=== PATIENT | female | born 1965 | race Caucasian/White ===

== ENCOUNTER → 2016-06-21 | Outpatient (CLI) | payer OTHER ==
[2016-06-21 15:25] LABS: Basophils % (A) 1 %; CH 30.1; CHCM 33.8; Eosinophils # (A) 0.3 k/uL (0-0.7); Eosinophils % (A) 4 %; HCT 44.4 % (34.0-46.0); HDW 2.55; HGB 14.5 gm/dL (11.4-16.0); Luc % (Auto) 1; Lymphocytes # (A) 2.1 k/uL (1.0-4.8); Lymphocytes % (A) 27 %; MCH 29.2 pg (25.0-35.0); MCHC 32.6 g/dL (31.0-37.0); MCV 89.4 fL (80.0-100.0); Mean Platelet Volume 7.3; Monocytes # (A) 0.5 k/uL (0-1.0); Monocytes % (A) 6 %; Neutrophils # (A) 4.9 k/uL (1.3-7.7); Neutrophils % (A) 62 %; RBC 4.96 m/uL (3.80-5.40); RDW 12.3 % (11.5-15.5); WBC 7.9 k/uL (3.8-10.6); WBC (Perox) 7.81
== END | disposition home or self-care (01) ==
LOC: LABPAT 14:46
PROVIDERS: ATTEND Obstetrics & Gynecology
DX: Z01.812 Encounter for preprocedural laboratory examination (principal); Z01.810 Encounter for preprocedural cardiovascular examination
CPT/HCPCS: 85025

== ENCOUNTER 2016-06-27 06:29 | Day surgery (SDC) | payer OTHER ==
[2016-06-22 12:29] VITALS: BMI 43.0
--- NOTE | 2016-06-26 17:20 | P.HPOB ---
History of Present Illness H&P Date: 06/27/16 Chief Complaint: Thickened endometrium Keena is a 51-year-old female who had an ultrasound for follow-up of ovarian cyst. On ultrasound it was noted that the endometrial lining was twice as thick as would be expected and that she has very heavy vaginal bleeding November 02 for dates for menses. She is scheduled for D&C hysteroscopy to rule out polyp or other pathology. All questions are answered for her prior to proceeding to the operating room and risks/benefits/alternatives were discussed with the patient in detail as well as answered all questions. Past Medical History Past Medical History: Hypertension, Skin Disorder Additional Past Medical History / Comment(s): elevated urine calcium ,migraines , varicose veins, gall stones, kidney stones, anemia, POLYP, HEMMOROIDS History of Any Multi-Drug Resistant Organisms: None Reported Past Surgical History: Section, Orthopedic Surgery Additional Past Surgical History / Comment(s): jj hand surgery,rt nephrolithotomy, COLONOSCOPY, lithotripsy Past Anesthesia/Blood Transfusion Reactions: Motion Sickness, Postoperative Nausea & Vomiting (PONV) Additional Past Anesthesia/Blood Transfusion Reaction / Comment(s): pt states "had a difficult time with intubation with kidney surgery-no letter" Past Psychological History: No Psychological Hx Reported Smoking Status: Never smoker Past Alcohol Use History: Occasional Past Drug Use History: None Reported - Past Family History Mother Family Medical History: Renal Disease Additional Family Medical History / Comment(s): R/T KIDNEY FAILURE Father Family Medical History: Deep Vein Thrombosis (DVT), Renal Disease Additional Family Medical History / Comment(s): R/T KIDNEY FAILURE Medications and Allergies Home Medications Medication Instructions Recorded Confirmed Type Ferrous Sulfate [Feosol] 325 mg PO DAILY 09/14/14 02/21/16 History Cholecalciferol [Vitamin D3] 2,000 unit PO DAILY 10/07/15 02/21/16 History Losartan/Hydrochlorothiazide 1 each PO DAILY 10/07/15 02/21/16 History [Losartan-Hctz 100-25 mg Tab] Metoprolol Tartrate [Lopressor] 50 mg PO QAM 10/07/15 02/21/16 History Potassium Chloride [K-Tab ER] 10 meq PO DAILY 10/07/15 02/21/16 History hydrALAZINE HCL 50 mg PO BID 10/07/15 02/21/16 History Tamsulosin HCl [Flomax] 0.4 mg PO DAILY 02/17/16 02/21/16 History Allergies Allergy/AdvReac Type Severity Reaction Status Date / Time lisinopril AdvReac Cough Verified 06/22/16 12:18 Exam Osteopathic Statement: *. No significant issues noted on an osteopathic structural exam other than those noted in the History and Physical/Consult. - OBG Physical Exam Breast: both: normal (no masses) Abdomen: bowel sounds normal, no diffuse tenderness, no bruit present, no guarding noted, no hepatomegaly, no splenomegaly, no mass Vulva: both: normal Vagina: normal moisture, no discharge Cervix: no lesion, no discharge Uterus: normal size, normal contour Adnexa: both: normal Anus/Rectum: normal perianal skin, no rectal mass, no hemorrhoids, heme negative
[~2016-06-27 06:29] MED LIST: DEXAMETHASONE SOD PHOSPHATE 10 MG/ML 1 ML VIAL IV ONE; HYDROmorphone 1 MG/ML 1 ML SYRINGE IVP PRN; LACTATED RINGERS 1,000 ML IV SCH; MIDAZOLAM 2 MG/2 ML VIAL IV PRN; ONDANSETRON 4 MG/2 ML VIAL IVP ONE; Pre Op ABX Message 1 EACH MISC MISCELLANE ONE; SCOPOLAMINE 1.5MG/72HR PATCH TRANSDERM ONE
[2016-06-27] MEDS ORDERED: LIDOCAINE 1% 20 ML VIAL (10MG/ML) FOR IV START INTRADERMA ONE (07:04)
[2016-06-27] MEDS ORDERED: MIDAZOLAM 2 MG/2 ML VIAL ONE (07:34)
[2016-06-27] MEDS ORDERED: fentaNYL (PF) 50 MCG/ML 2 ML AMP ONE (07:34)
[2016-06-27] MEDS ORDERED: PROPOFOL 10 MG/ML 20 ML VIAL IV ONE (07:34)
[2016-06-27] MEDS ORDERED: LIDOCAINE 1% INJ 10MG/ML (20 ML MDV) ONE (07:34)
[2016-06-27] MEDS ORDERED: SUCCINYLCHOLINE CHLORIDE 100 MG/5 ML SYR IV ONE (07:34)
[2016-06-27] MEDS ORDERED: KETOROLAC 30 MG/ML 1 ML VIAL ONE (07:34)
--- NOTE | 2016-06-27 07:55 | P.OP ---
Date of Procedure: 06/27/16 Preoperative Diagnosis: DUB Postoperative Diagnosis: same Procedure(s) Performed: d&c hysteroscopy Anesthesia: TRAVIS Surgeon: Earl Daniels Estimated Blood Loss (ml): 5 Pathology: other (uterine currettings) Condition: stable Disposition: same day Operative Findings: await tissue pathology Description of Procedure: Was taken the operating suite where a general anesthetic was found be adequate. She was prepped and draped in normal sterile fashion and placed in dorsal lithotomy position. Initially a weighted speculum was inserted in the vagina and anterior lip of the cervix was then identified and grasped with a single- tooth tenaculum. Cervix was then dilated uterus sounds 10 cm. Camera was then inserted proliferative endometrium was noted therefore camera was removed and sharp curettings of endometrium were obtained. All this tissues collected placed on Telfa sent to pathology for evaluation. Once this was accomplished all instruments were removed sponge, lap, needle counts were all correct 2 and patient was taken to the recovery room in stable and satisfactory condition. Plan - Discharge Summary New Discharge Prescriptions: Ibuprofen [Motrin] 600 mg PO Q6HR PRN #30 tab PRN Reason: Pain Discharge Medication List Ferrous Sulfate [Feosol] 325 mg PO DAILY 09/14/14 [History] Cholecalciferol [Vitamin D3] 2,000 unit PO DAILY 10/07/15 [History] Losartan/Hydrochlorothiazide [Losartan-Hctz 100-25 mg Tab] 1 each PO DAILY 10/06 [History] Metoprolol Tartrate [Lopressor] 50 mg PO QAM 10/07/15 [History] Potassium Chloride [K-Tab ER] 10 meq PO DAILY 10/07/15 [History] hydrALAZINE HCL 50 mg PO BID 10/07/15 [History] Cyanocobalamin [Vitamin B-12] 1 tab PO DAILY 06/27/16 [History] Ibuprofen [Motrin] 600 mg PO Q6HR PRN #30 tab 06/27/16 [Rx]
[2016-06-27 08:11] VITALS: TEMP 97.8
[2016-06-27 09:13] VITALS: RESP 16
[2016-06-27 09:58] VITALS: BP 140/84; PULSE 83
== END 2016-06-27 10:23 | disposition home or self-care (01) ==
LOC: OR 06:29
PROVIDERS: ATTEND Obstetrics & Gynecology
DX: N93.8 Other specified abnormal uterine and vaginal bleeding (principal); R93.8 Abnormal findings on diagnostic imaging of other specified body structures; I10 Essential (primary) hypertension; Z79.899 Other long term (current) drug therapy; Z88.8 Allergy status to other drugs, medicaments and biological substances
CPT/HCPCS: 58558; 81025; 88305; J2250; J1100; J2405; J2001; J3010; J1885; J0330; J2704

== ENCOUNTER → 2017-01-01 | Outpatient (CLI) | payer OTHER ==
--- NOTE | 2017-01-01 11:07 | XR ---
EXAMINATION TYPE: XR KUB DATE OF EXAM: 01/01/2017 10:58 AM CLINICAL HISTORY: Right-sided pain and hematuria. TECHNIQUE: 2 supine KUB images of the abdomen are obtained. COMPARISON: Abdominal x-ray March 03, 2016. CT abdomen August 11, 2014. FINDINGS: 2-3 left-sided renal calculi are felt present measuring up to 6 mm in size seen better on c urrent study. No definite right-sided nephrolithiasis. Occasional pelvic phlebolith is redemonstrated . There is overall nonobstructive bowel gas pattern. Spina bifida defects L5 level is redemonstrated. IMPRESSION: Left-sided nonobstructing renal calculi felt present. No definite right-sided calculi.
== END | disposition home or self-care (01) ==
LOC: RADXRMAIN 10:45
PROVIDERS: ATTEND Urology
DX: N20.0 Calculus of kidney (principal)
CPT/HCPCS: 74000

== ENCOUNTER → 2018-03-13 | Outpatient (CLI) | payer OTHER ==
--- NOTE | 2018-03-13 16:06 | XR ---
EXAMINATION TYPE: XR KUB DATE OF EXAM: 03/13/2018 2:50 PM CLINICAL HISTORY: Right-sided back pain with history of nephrolithiasis. TECHNIQUE: Single supine KUB image of the abdomen is obtained. COMPARISON: 01/01/2017. FINDINGS: There is a new radiopaque density near the L1 right transverse process. This is oval in sha pe and measures up to 1.7 cm in longitudinal dimension. Punctate calculus is seen on the left. No new calculi within the pelvis. Bowel is nondilated. Visualized portions of the lung bases are clear. Oss eous structures appear intact. IMPRESSION: 1. New 1.7 cm density. The right L1 transverse process. This could represent colonic debris or new ca lculus. Renal or CT could be utilized for further assessment. 2. Punctate left renal calculus is redemonstrated.
== END ==
LOC: RADXRMAIN 14:41
PROVIDERS: ATTEND Urology
DX: N20.0 Calculus of kidney (principal)
CPT/HCPCS: 74018

== ENCOUNTER → 2021-07-30 | Outpatient (CLI) | payer OTHER ==
[2021-07-30 14:17] LABS: African American GFR (CKD) 114.8 (60.0-200.0); BUN/Creat Ratio 18.81 Ratio (12.00-20.00); Blood Urea Nitrogen 12.3 mg/dL (9.0-27.0); Calcium 9.5 mg/dL (8.7-10.3); Carbon Dioxide 23.4 mmol/L (20.0-27.5); Chloride 99 mmol/L (96-109); Glucose 318 mg/dL (70-110); Non-African American GFR(CKD) 99.1 (60.0-200.0); Potassium 4.5 mmol/L (3.5-5.5); Sodium 136 mmol/L (135-145)
== END | disposition home or self-care (01) ==
LOC: LABWHC1 09:54
PROVIDERS: ATTEND Nurse Practitioner
DX: R00.2 Palpitations (principal)
CPT/HCPCS: 36415; 80048; 83036; 84443